=== PATIENT | male | born 1935 | race Caucasian/White ===

== ENCOUNTER 2017-05-04 08:50 | Emergency (ER) | payer MEDICARE ==
[~2017-05-04] VITALS: Ht 182.8 cm; Wt 95.3 kg
[~2017-05-04 08:50] MED LIST: ALLERGY10 MG PO; AMLODIPINE5 MG PO; ASPIRIN81 M1 PO; ASPRIN/BUTALBIT1 TAB PO; CHOLESTEROL MA600 MG PO; CLOPIDOGREL75 MG PO; FLUTICASON0.05 MG/A2 NAS; IRON TABLETS325 MG PO; LISINOPRIL HCTZ1 TA1 PO; METOPROLOL SUC100 M1 PO; MULTIPLE VITAMI1 CAP PO; MULTIVITAMIN1 CTB PO; OMEGA-3 FISH O1 EAC3 PO; OMEGA-3 FISH1200 MG PO; OMEPRAZOLE40 MG PO; PRILOSEC40 MG PO; RED YEAST RICE PO; SUPER EPA 1201200 MG PO; SYNTHROID,LEVO75 MCG PO; Synthroid,Lev100 MCG PO; TRAMADOL50 MG PO; TRIAMTERENE & H1 CA1 PO; VITAMIN D-32000 UNIT PO; VITAMIN D2000 IU PO; VITAMIN D32000 IU PO
[2017-05-04] MEDS ORDERED: NORVASC10 MG PO (08:58)
[2017-05-04 09:23] LABS: BILIRUBIN NEGATIVE (NEGATIVE); BLOOD 3+ (NEGATIVE); CLARITY CLOUDY (CLEAR); COLOR YELLOW (YELLOW); GLUCOSE NEGATIVE (NEGATIVE); KETONE NEGATIVE (NEGATIVE); LEUKO ESTERASE TRACE (NEGATIVE); NITRITE NEGATIVE (NEGATIVE); PH 7.5 (5.0-9.0); UROBILINOGEN 0.2 E.U./dl (0.2-1.0)
[2017-05-04 09:27] LABS: BASO # 0.1 10*3/uL (0.0-0.1); BASO % 0.6 % (0.0-1.0); EOS # 0.1 10*3/uL (0.0-0.4); EOS % 1.2 % (1.0-4.0); HEMATOCRIT 47.1 % (42.0-52.0); HEMOGLOBIN 16.8 g/dl (14.0-18.0); LYMPH # 1.6 10*3/uL (1.3-4.4); LYMPH % 18.7 % (27.0-41.0); MEAN CELL VOLUME 95.2 fl (80.0-94.0); MEAN CORPUSCULAR HGB 33.9 pg (27.0-31.0); MEAN CORPUSCULAR HGB CONC 35.7 g/dl (33.0-37.0); MEAN PLATELET VOLUME 10.1 fl (9.6-12.3); MONO # 0.5 10*3/uL (0.1-1.0); MONO % 5.7 % (3.0-9.0); NEUT # 6.2 10*3/uL (2.3-7.9); NEUT % 73.6 % (47.0-73.0); PLATELET COUNT AUTOMATED 243 10*3/uL (130-400); RED BLOOD COUNT 4.95 10*6/uL (4.50-5.90); RED CELL DISTRI WIDTH 12.6 % (0-14.5); WHITE BLOOD COUNT 8.4 10*3/uL (4.8-10.8)
[2017-05-04 09:42] LABS: ALBUMIN 4.2 gm/dl (3.1-4.5); ALKALINE PHOSPHATASE 83 U/L (45-117); BUN 12 mg/dl (7-24); CHLORIDE 97 mmol/L (98-107); CREATININE 1.06 mg/dL (0.70-1.30); POTASSIUM 3.8 mmol/L (3.5-5.1); SGOT/AST 35 IU/L (3-35); SGPT/ALT 38 U/L (12-78); SODIUM 131 mmol/L (136-145); TOTAL PROTEIN 9.3 gm/dL (6.4-8.2)
[2017-05-04 09:52] LABS: RBC TNTC rbc/hpf (0-2)
[2017-05-04 09:53] LABS: BACTERIA TRACE
[2017-05-04] MEDS ORDERED: CEFUROXIME AXE500 MG PO (12:28)
== END 2017-05-04 13:12 | disposition home or self-care (01) ==
LOC: ED 08:50
PROVIDERS: Physician Assistant
DX: R31.9 Hematuria, unspecified (principal); Z98.890 Other specified postprocedural states; Z79.899 Other long term (current) drug therapy; Z79.82 Long term (current) use of aspirin; Z85.038 Personal history of other malignant neoplasm of large intestine

== ENCOUNTER → 2018-12-08 | Day surgery (SDC) | payer MEDICARE ==
[~2018-12-08] VITALS: Ht 182.8 cm; Wt 93.0 kg
[~2018-12-08] MED LIST changes: +CEFUROXIME AXE500 MG PO; +LASIX40 MG PO; +NORVASC10 MG PO; +PRAVACHOL40 MG PO
--- NOTE | ~2018-12-08 | O ---
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 No chemotherapy has been required in the past. ALLERGIES: No known medication. FAMILY HISTORY: Noncontributory. PAST SURGICAL HISTORY: Right hemicolectomy. PAST MEDICAL HISTORY: Hypertension. SOCIAL HISTORY: Nonsmoker, rare alcohol consumer. PROCEDURE: Today's procedure part of investigation is colonoscopy plus multiple polypectomy. PREMEDICATION: Propofol. SCOPE: Olympus forward-viewing colonoscope 10L video. REPORT: After putting the patient in left lateral position and application of lubricant to the scope, the scope was introduced. Thereafter, under direct visualization, advanced through the length of colon without difficulty. Diverticulosis was noticed. Hepatic flexure polypoid lesion with snare was polypectomized, another two small polypoid lesions, sessile in character at the anastomotic site was polypectomized. Air was suctioned out. The patient was gradually extubated and tolerated the procedure well. IMPRESSION: Diverticulosis, sessile colonic polyp at the anastomotic site, status post two sessile polypectomy and hepatic flexure polypoid lesion status post snare polypectomy. PLAN AND DISCUSSION: High fiber diet. ACTIVITY: Ad aamir. FOLLOWUP: Routinely with you in office, p.r.n. visit with us in [facility]. [place], [place] OPERATIVE NOTE NAME: MARTHA DAVIS UNIT #: [id number] ROOM: DOCTOR: SARAH ALEXANDER MD BIRTHDATE: [birth year] SARAH ALEXANDER MD CM:OPRECORD:OPERATIVE NOTE [id number] ANUJ ALEXANDER MD 12/08/18 [id number] interface
[2018-12-08 10:57] VITALS: BP 129/78
[2018-12-08 13:50] VITALS: BP 118/56
[2018-12-08 14:05] VITALS: BP 139/73
[2018-12-08 14:17] VITALS: BP 132/68
== END | disposition home or self-care (01) ==
LOC: SDC 12-06 11:00
DX: D12.3 Benign neoplasm of transverse colon (principal); K57.30 Diverticulosis of large intestine without perforation or abscess without bleeding; K63.5 Polyp of colon; K21.9 Gastro-esophageal reflux disease without esophagitis; I10 Essential (primary) hypertension; E78.5 Hyperlipidemia, unspecified; E66.9 Obesity, unspecified; Z68.27 Body mass index [BMI] 27.0-27.9, adult; Z79.899 Other long term (current) drug therapy; Z72.89 Other problems related to lifestyle; Z98.890 Other specified postprocedural states; Z85.038 Personal history of other malignant neoplasm of large intestine; Z82.49 Family history of ischemic heart disease and other diseases of the circulatory system

== ENCOUNTER 2021-11-16 11:35 | Inpatient (IN) | payer MEDICARE ==
[~2021-11-16] VITALS: Ht 182.8 cm; Wt 93.1 kg
[2021-11-16 11:58] VITALS: BP 193/62
[2021-11-16] MEDS ORDERED: HYDROCHLOROTHIA25 M1 PO (12:11)
[2021-11-16] MEDS ORDERED: LISINOPRIL20 MG PO ×2 (12:11→14:50)
[2021-11-16] MEDS ORDERED: ATORVASTATIN CA20 M1 PO (12:12)
[2021-11-16 12:21] LABS: BASO % 0.4 % (0.0-1.0); EOS % 0.5 % (1.0-4.0); HEMATOCRIT 44.1 % (42.0-52.0); LYMPH # 1.5 10*3/uL (1.3-4.4); LYMPH % 17.7 % (27.0-41.0); MEAN CELL VOLUME 98.9 fl (80.0-94.0); MEAN CORPUSCULAR HGB 33.4 pg (27.0-31.0); MEAN CORPUSCULAR HGB CONC 33.8 g/dl (33.0-37.0); MEAN PLATELET VOLUME 11.4 fl (9.6-12.3); MONO # 0.5 10*3/uL (0.1-1.0); MONO % 5.6 % (3.0-9.0); NEUT # 6.4 10*3/uL (2.3-7.9); NEUT % 75.3 % (47.0-73.0); PLATELET COUNT AUTOMATED 161 10*3/uL (130-400); RED BLOOD COUNT 4.46 10*6/uL (4.50-5.90); RED CELL DISTRI WIDTH 12.9 % (0-14.5); WHITE BLOOD COUNT 8.5 10*3/uL (4.8-10.8)
[2021-11-16 12:33] LABS: ACT PARTIAL THROMBO TIME 28.5 SECONDS (20.0-32.1); INTERNATIONAL NORM RATIO 1.1 (2.0-3.5)
[2021-11-16 12:36] LABS: ALKALINE PHOSPHATASE 86 U/L (45-117); BUN 16 mg/dl (7-24); CHLORIDE 103 mmol/L (98-107); CREATININE 1.17 mg/dL (0.70-1.30); POTASSIUM 3.4 mmol/L (3.5-5.1); SGOT/AST 26 IU/L (3-35); SGPT/ALT 35 U/L (12-78); SODIUM 140 mmol/L (136-145); TOTAL PROTEIN 7.7 gm/dL (6.4-8.2)
[2021-11-16 13:10] VITALS: BP 185/79
[2021-11-16 15:16] VITALS: BP 210/90
[2021-11-16] MEDS ORDERED: VITAMIN D350 MCG PO (15:44)
[2021-11-16] MEDS ORDERED: DAILY VITE1 EACH PO (15:46)
[2021-11-16 17:34] VITALS: BP 170/66
[2021-11-16 20:00] VITALS: BP 151/86
[2021-11-17] VITALS (8 sets, daily range): BP systolic 133–177; BP diastolic 42–90
[2021-11-17 05:25] LABS: BUN 12 mg/dl (7-24); CHLORIDE 105 mmol/L (98-107); CREATININE 0.84 mg/dL (0.70-1.30); POTASSIUM 3.2 mmol/L (3.5-5.1); SODIUM 139 mmol/L (136-145)
[2021-11-17 05:28] LABS: CHOLESTEROL 102 mg/dL (<200); LDL CHOLESTEROL 51 mg/dL (9-159); TRIGLYCERIDES 60 mg/dl (<150)
[2021-11-17 06:29] LABS: BASO % 0.4 % (0.0-1.0); EOS # 0.2 10*3/uL (0.0-0.4); EOS % 2.9 % (1.0-4.0); HEMATOCRIT 42.3 % (42.0-52.0); MEAN CELL VOLUME 101.4 fl (80.0-94.0); MEAN CORPUSCULAR HGB 34.5 pg (27.0-31.0); MEAN PLATELET VOLUME 12.3 fl (9.6-12.3); MONO # 0.6 10*3/uL (0.1-1.0); MONO % 7.5 % (3.0-9.0); NEUT # 5.2 10*3/uL (2.3-7.9); NEUT % 63.8 % (47.0-73.0); PLATELET COUNT AUTOMATED 143 10*3/uL (130-400); RED BLOOD COUNT 4.17 10*6/uL (4.50-5.90); RED CELL DISTRI WIDTH 13.1 % (0-14.5); WHITE BLOOD COUNT 8.2 10*3/uL (4.8-10.8)
[2021-11-18] VITALS: BP 146/63
[2021-11-18 08:00] VITALS: BP 183/73
[2021-11-18 12:00] VITALS: BP 134/64
[2021-11-18 16:00] VITALS: BP 143/62
[2021-11-18 20:00] VITALS: BP 168/65
[2021-11-19] VITALS: BP 153/67
[2021-11-19 08:00] VITALS: BP 161/57
[2021-11-19] MEDS ORDERED: Zestril,Prinivil PO (09:21)
[2021-11-19] MEDS ORDERED: AMLODIPINE BESYL5 MG PO (09:21)
[2021-11-19] MEDS ORDERED: ASPIRIN CHILDRE81 MG PO (09:21)
[2021-11-19] MEDS ORDERED: ELIQUIS5 M1 PO (09:21)
[2021-11-19 12:00] VITALS: BP 152/58
== END 2021-11-19 13:16 | disposition home health service (06) | DRG 65 ==
LOC: ED 11:35 → EDHOLD 14:01 → 4E 14:01
PROVIDERS: Emergency Medicine; ADMIT Internal Medicine; ATTEND Internal Medicine
DX: I63.9 Cerebral infarction, unspecified (principal); I48.21 Permanent atrial fibrillation; I38 Endocarditis, valve unspecified; E03.9 Hypothyroidism, unspecified; E78.2 Mixed hyperlipidemia; I10 Essential (primary) hypertension; E87.6 Hypokalemia; Z20.822 Contact with and (suspected) exposure to COVID-19; Z86.010 Personal history of colon polyps; Z82.49 Family history of ischemic heart disease and other diseases of the circulatory system; Z85.038 Personal history of other malignant neoplasm of large intestine; R29.702 NIHSS score 2

== ENCOUNTER 2021-11-23 11:47 | Inpatient (IN) | payer MEDICARE ==
[~2021-11-23] VITALS: Ht 182.9 cm; Wt 91.2 kg
[~2021-11-23 11:47] MED LIST changes: +AMLODIPINE BESYL5 MG PO; +ASPIRIN CHILDRE81 MG PO; +ATORVASTATIN CA20 M1 PO; +DAILY VITE1 EACH PO; +ELIQUIS5 M1 PO; +HYDROCHLOROTHIA25 M1 PO; +LISINOPRIL20 MG PO; +VITAMIN D350 MCG PO; +Zestril,Prinivil PO
[2021-11-23 13:51] LABS: BASO % 0.4 % (0.0-1.0); EOS # 0.1 10*3/uL (0.0-0.4); EOS % 1.6 % (1.0-4.0); HEMATOCRIT 42.3 % (42.0-52.0); LYMPH # 1.7 10*3/uL (1.3-4.4); LYMPH % 22.6 % (27.0-41.0); MEAN CELL VOLUME 97.7 fl (80.0-94.0); MEAN CORPUSCULAR HGB 33.7 pg (27.0-31.0); MEAN CORPUSCULAR HGB CONC 34.5 g/dl (33.0-37.0); MEAN PLATELET VOLUME 11.6 fl (9.6-12.3); MONO # 0.5 10*3/uL (0.1-1.0); MONO % 6.8 % (3.0-9.0); NEUT % 68.3 % (47.0-73.0); PLATELET COUNT AUTOMATED 173 10*3/uL (130-400); RED BLOOD COUNT 4.33 10*6/uL (4.50-5.90); RED CELL DISTRI WIDTH 13.2 % (0-14.5); WHITE BLOOD COUNT 7.3 10*3/uL (4.8-10.8)
[2021-11-23 14:22] LABS: ALKALINE PHOSPHATASE 84 U/L (45-117); BUN 22 mg/dl (7-24); CHLORIDE 106 mmol/L (98-107); POTASSIUM 3.5 mmol/L (3.5-5.1); SGOT/AST 33 IU/L (3-35); SGPT/ALT 57 U/L (12-78); SODIUM 138 mmol/L (136-145); TOTAL PROTEIN 7.6 gm/dL (6.4-8.2)
[2021-11-23 16:00] VITALS: BP 142/83
[2021-11-23 20:00] VITALS: BP 164/65
[2021-11-24] VITALS: BP 164/78
[2021-11-24 08:00] VITALS: BP 149/76
[2021-11-24 12:00] VITALS: BP 160/67
== END 2021-11-24 15:31 | disposition home health service (06) | DRG 310 ==
LOC: 5E 11:47
PROVIDERS: ADMIT Internal Medicine; ATTEND Internal Medicine
DX: I48.91 Unspecified atrial fibrillation (principal); E78.5 Hyperlipidemia, unspecified; I65.29 Occlusion and stenosis of unspecified carotid artery; I10 Essential (primary) hypertension; Z86.73 Personal history of transient ischemic attack (TIA), and cerebral infarction without residual deficits; Z82.49 Family history of ischemic heart disease and other diseases of the circulatory system; Z87.891 Personal history of nicotine dependence; Z78.9 Other specified health status; Z79.82 Long term (current) use of aspirin; Z79.899 Other long term (current) drug therapy; I45.10 Unspecified right bundle-branch block

== ENCOUNTER → 2022-11-18 | Outpatient (CLI) | payer MEDICARE ==
[~2022-11-18] MED LIST changes: +ALDACTONE25 MG PO; +AMLODIPINE BESY10 MG PO; +ATORVASTATIN CA40 M1 PO; +CARVEDILOL6.25 MG PO; +LASIX20 MG PO; +LISINOPRIL40 MG PO; +PROTONIX40 M1 IV; +ZITHROMAX250 MG PO
== END | disposition home or self-care (01) ==
LOC: RESCLI 07:49
PROVIDERS: ATTEND Internal Medicine
DX: I48.91 Unspecified atrial fibrillation (principal); I10 Essential (primary) hypertension; E61.1 Iron deficiency; E55.9 Vitamin D deficiency, unspecified; R80.9 Proteinuria, unspecified; D75.89 Other specified diseases of blood and blood-forming organs; M54.9 Dorsalgia, unspecified; I63.9 Cerebral infarction, unspecified; M41.9 Scoliosis, unspecified; R26.89 Other abnormalities of gait and mobility; E03.9 Hypothyroidism, unspecified; Z98.890 Other specified postprocedural states; Z79.899 Other long term (current) drug therapy

== ENCOUNTER → 2023-01-11 | Outpatient (CLI) | payer MEDICARE | END | disposition home or self-care (01) | LOC: CT 00:11 | PROVIDERS: ATTEND Internal Medicine Critical Care Medicine | DX: R91.1 Solitary pulmonary nodule (principal); J98.11 Atelectasis; R91.8 Other nonspecific abnormal finding of lung field; J43.9 Emphysema, unspecified; I25.10 Atherosclerotic heart disease of native coronary artery without angina pectoris; K44.9 Diaphragmatic hernia without obstruction or gangrene; I70.0 Atherosclerosis of aorta; K57.30 Diverticulosis of large intestine without perforation or abscess without bleeding; K76.89 Other specified diseases of liver; M43.8X3 Other specified deforming dorsopathies, cervicothoracic region; Z85.038 Personal history of other malignant neoplasm of large intestine; Z68.28 Body mass index [BMI] 28.0-28.9, adult; Z87.891 Personal history of nicotine dependence ==

== ENCOUNTER → 2024-01-12 | Outpatient (CLI) | payer MEDICARE ==
[~2024-01-12] MED LIST changes: +cloNIDine Hydrochloride 0.1 MG TAB PO ONE
== END | disposition home or self-care (01) ==
LOC: RESCLI 01:14
PROVIDERS: ATTEND Internal Medicine
DX: I10 Essential (primary) hypertension (principal); I48.91 Unspecified atrial fibrillation; E78.5 Hyperlipidemia, unspecified; E87.70 Fluid overload, unspecified; E03.9 Hypothyroidism, unspecified; Z87.891 Personal history of nicotine dependence; Z98.890 Other specified postprocedural states; Z95.0 Presence of cardiac pacemaker; Z79.899 Other long term (current) drug therapy